=== PATIENT | male | born 1950 | race Two or more races ===

== ENCOUNTER 2022-02-05 22:52 | Emergency (ER) | payer SELFPAY ==
[2022-02-05 23:24] LABS: BASO % 1 % (0-3); EOS # 0.1 x10^3/uL (0.0-0.7); EOS % 1 % (0-3); HEMATOCRIT 37.9 % (39.0-53.0); LYMPH # 1.4 x10^3/uL (1.0-4.8); LYMPH % 19 % (24-48); MEAN CORPUSCULAR HEMOGLOBIN 30 pg (25-35); MEAN CORPUSCULAR HGB CONC 34 g/dL (31-37); MEAN CORPUSCULAR VOLUME 87 fL (79-100); MONO # 0.8 x10^3/uL (0.0-1.1); MONO % 11 % (0-9); NEUT # 5.1 x10^3/uL (1.8-7.7); NEUT % 69 % (31-73); PLATELET COUNT 222 x10^3/uL (140-400); RED BLOOD COUNT 4.37 x10^6/uL (4.30-5.70); WHITE BLOOD COUNT 7.5 x10^3/uL (4.0-11.0)
[2022-02-05 23:31] LABS: CALCIUM 8.4 mg/dL (8.5-10.1); CREATININE 1.2 mg/dL (0.7-1.3); GFR 59.7
[2022-02-05 23:37] LABS: ALBUMIN 3.7 g/dL (3.4-5.0); ALBUMIN/GLOBULIN RATIO 0.9 (1.0-1.7); TOTAL BILIRUBIN 0.3 mg/dL (0.2-1.0)
--- NOTE | 2022-02-06 00:10 | RAD ---
CT scan of the head without contrast 02/05/2022 Clinical History: Fall with head injury. Technique: Unenhanced, contiguous, 5 mm axial sections were obtained through the head. One or more of the following individualized dose reduction techniques were utilized for this study: 1. Automated exposure control. 2. Adjustment of the mA and/or kV according to patient size. 3. Use of iterative reconstruction technique. Findings: There is generalized parenchymal atrophy. Areas of decreased attenuation are seen within th e periventricular and subcortical white matter of both cerebral hemispheres consistent with areas of small vessel ischemic disease. Areas of encephalomalacia are seen involving both inferior frontal lob es along with the anterior right temporal lobe No acute parenchymal abnormality is seen. No extra-axi al fluid collection is noted. No skull fracture is seen. Impression: No acute intracranial abnormality is seen. CT scan of the cervical spine without contrast 02/05/2022 Clinical history: Fall with neck injury. Technique: Unenhanced, contiguous, 0.625 mm axial sections were obtained through the cervical spine. 3 mm reconstructed axial and 3 mm coronal and sagittal reconstructed images were obtained. One or more of the following individualized dose reduction techniques were utilized for this study: 1. Automated exposure control. 2. Adjustment of the mA and/or kV according to patient size. 3. Use of iterative reconstruction technique. Findings: Sagittal and coronal reconstructed images demonstrate straightening of the normal cervical lordosis. Degenerative changes consisting of varying degrees of disc space narrowing, vertebral endpl ate sclerosis and mild anterior and posterior vertebral body osteophyte formation are seen involving the cervical disc spaces. No fracture or subluxation cervical vertebrae seen. Degenerative degenerative changes are seen involv ing the uncovertebral and facet joints throughout the cervical disc spaces. Impression: No fracture or subluxation of the cervical vertebra is identified. Electronically signed by: Andriy Griffith MD (02/06/2022 12:07 AM) [id number]
--- NOTE | 2022-02-06 00:19 | RAD ---
PQRS Compliance Statement: One or more of the following individualized dose reduction techniques were utilized for this examinat ion: 1. Automated exposure control 2. Adjustment of the mA and/or kV according to patient size 3. Use of iterative reconstruction technique CT CHEST_ABDOMEN_ AND PELVIS WITHOUT CONTRAST Clinical Indication: Reason: fall, bruising / Spl. Instructions: / History: Comparison: None. Technique: Helical CT imaging of the chest, abdomen and pelvis is performed without IV or oral contra st. Findings: Evaluation of solid organs and bowel is limited without oral and IV contrast, decreasing sensitivity for detection of abnormal findings. No acute mediastinal hematoma is identified. 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 Coronary artery disease. Cardiac size is normal, no pericardial effus ion. No pleural effusion. The central airways are patent. There is mild scarring in the superior segment o f the right lower lobe along the major fissure. There is a small segment of nodular opacities in the anterior left upper lobe, for example image 20. Calcified granuloma in the lingula. Minimal bilateral dependent atelectasis. Given the constraints of noncontrast exam, no acute traumatic solid organ injury is identified in the upper abdomen. There is cholelithiasis. No free fluid or hemorrhage is identified in the upper abdom en. There is a small cortical calcification of the left kidney. There is a 1.5 cm round partially exo phytic lesion of the right kidney is soft tissue density, image 61. A solid renal mass cannot be excl uded. Stomach is unremarkable. There is no bowel obstruction. No colon wall thickening. There is no intrape ritoneal free air. The urinary bladder is intact. There is a left posterior bladder diverticulum measuring 3.9 cm. Prost ate is borderline enlarged. There is no pelvic free fluid. There is old fracture of the left iliac bone. There is mild arthropathy of the bilateral hips. There are probably chronic compression fractures at the anterior endplates of the T12 and L1 vertebral bodi es. There is mild loss of height anteriorly. No significant retropulsion is seen. There is mild compr ession deformity superior endplate of the T8 vertebral body. There are several old left rib fractures . IMPRESSION: 1. No acute traumatic injury in the chest, abdomen, or pelvis is identified. 2. There are nodular opacities in the anterior left upper lobe that may be infectious/inflammatory. Recommend CT chest follow-up in 3 months. 3. There is a small partially exophytic soft tissue density lesion in the right kidney. Solid mass c annot be excluded. Recommend outpatient renal ultrasound. 4. There are probably chronic compression fractures of the T8, T12, and L1 vertebral bodies. 5. Other incidental findings as above. Electronically signed by: Luis Narvaez MD (02/06/2022 12:17 AM) [facility]
--- NOTE | 2022-02-06 02:28 | RAD ---
XR HAND 3 VIEWS Clinical Indication: Reason: fall, bruising INCLUDE WRISTS / Spl. Instructions: / History: Comparison: None. Findings: No dorsal soft tissue swelling of the hands is identified. There is disc space narrowing and large ma rginal osteophytes of the left fifth PIP. There is probably old fracture deformity of the distal left ulna. There is old fracture deformity of the distal neck of the left third metacarpal. There is old fracture deformity at the base of the right fifth metacarpal. There is old fracture deformity of the distal neck of the right second metacarpal. There is no acute fracture. No radiopaque foreign bodies identified. IMPRESSION: No acute fracture. Electronically signed by: Luis Narvaez MD (02/06/2022 2:26 AM) [facility]
--- NOTE | 2022-02-06 02:31 | RAD ---
XR KNEE 3 VIEWS, BILATERAL Clinical Indication: Reason: fall, bruising / Spl. Instructions: / History: Comparison: None. Findings: Right: There is tricompartmental joint space narrowing most advanced in the lateral compartment in which the narrowing is moderate. There is meniscal chondrocalcinosis. No joint effusion is appreciated. Patell a in anatomic position. No acute fracture is seen. Left: There is meniscal chondrocalcinosis. There is mild narrowing of the medial compartment. 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 No joint effusion is appreciated. Patella is in anatomic position. No acute fracture seen. IMPRESSION: 1. No acute fracture. 2. Moderate arthropathy. 3. There is meniscal chondrocalcinosis. Electronically signed by: Luis Narvaez MD (02/06/2022 2:29 AM) [facility]
--- NOTE | 2022-02-06 02:48 | RAD ---
XR HIP (WITH OR WITHOUT PELVIS) 1 VIEW, BILATERAL HIP Clinical Indication: Reason: fall, bruising / Spl. Instructions: / History: Comparison: None. Findings: There is no acute pelvic fracture. There is moderate arthropathy of the bilateral hips. The sacroilia c joints are symmetric. There is mild endplate spurring of the lower lumbar spine. There is mild stoo l and air in the rectum. There is no acute fracture or dislocation of the right or left hip. The mine ralization is normal. IMPRESSION: No acute fracture or dislocation. Electronically signed by: Luis Narvaez MD (02/06/2022 2:45 AM) [facility]
[2022-02-06 03:17] LABS: BACTERIA,URINE 0 /HPF (0-FEW); RBC,URINE 0 /HPF (0-2); WBC,URINE 0 /HPF (0-4)
--- NOTE | 2022-02-06 03:20 | RAD ---
RIGHT SHOULDER , 3 VIEWS Clinical Indication: Reason: fall, bruising / Spl. Instructions: / History: Comparison: None. Findings: There is no acute fracture or dislocation. Pointed appearance of the distal clavicle may be postsurgi lillian or due to osteolysis. The visualized lung is clear. There is no evidence of a displaced rib fract ure. There is no soft tissue abnormality. IMPRESSION: No acute fracture or dislocation. Electronically signed by: Luis Narvaez MD (02/06/2022 3:17 AM) [facility]
--- NOTE | 2022-02-06 03:42 | PHYS DOC ---
General Adult EDM: Chief Complaint: TRAUMA ACTIVATION HPI: HPI: Patient is a 71-year-old male who presents with fall. History of seizures for which she is currently on some meds. Recently moved here this month from [facility]. Patient was walking on the patio today when he had a seizure and fell face first off of it. Possible LOC for a minute or so after the fall. This could have been due to the seizure but we are unsure at this time. Patient is not on any blood thinners. Complaining of pain throughout his body and shoulders wrists and head. No fever or chills. No other injuries. Review of Systems: Review of Systems: Constitutional: Denies fever or chills. [] Eyes: Denies change in visual acuity. [] HENT: Denies nasal congestion or sore throat. [] Respiratory: Denies cough or shortness of breath. [] Cardiovascular: Denies chest pain or edema. [] GI: Denies abdominal pain, nausea, vomiting, bloody stools or diarrhea. [] : Denies dysuria. [] Musculoskeletal: See HPI Integument: Denies rash. [] Neurologic: Denies headache, focal weakness or sensory changes. [] Endocrine: Denies polyuria or polydipsia. [] Lymphatic: Denies swollen glands. [] Psychiatric: Denies depression or anxiety. [] Heart Score: C/O Chest Pain: No Risk Factors: Risk Factors: DM, Current or recent (<one month) smoker, HTN, HLP, family history of CAD, obesity. Risk Scores: Score 0 - 3: 2.5% MACE over next 6 weeks - Discharge Home Score 4 - 6: 20.3% MACE over next 6 weeks - Admit for Clinical Observation Score 7 - 10: 72.7% MACE over next 6 weeks - Early Invasive Strategies Allergies: Allergies: Allergies Coded Allergies Type Severity Reaction Last Updated Verified No Known Drug Allergies 02/05/22 No Physical Exam: PE: Constitutional: Well developed, well nourished, no acute distress, non-toxic appearance. [] HENT: Frontal scalp hematoma Eyes: PERRLA, EOMI, conjunctiva normal, no discharge. [] Neck: Normal range of motion, no tenderness, supple, no stridor. No cervical thoracic or lumbar spine tenderness Cardiovascular:Heart rate regular rhythm, no murmur [] Lungs & Thorax: Bilateral breath sounds clear to auscultation [] Abdomen: Bowel sounds normal, soft, no tenderness, no masses, no pulsatile masses. [] Skin: Warm, dry, no erythema, no rash. [] Back: No tenderness, no CVA tenderness. [] Extremities: Bruising noted over both palms without any anatomical snuffbox tenderness bilaterally. Some bruising noted over the right shoulder, Neurologic: Alert and oriented X 3, normal motor function, normal sensory function, no focal deficits noted. [] Psychologic: Affect normal, judgement normal, mood normal. [] Current Patient Data: Labs: Laboratory Tests Test 02/05/22 23:08 02/06/22 03:00 White Blood Count 7.5 x10^3/uL (4.0-11.0) Red Blood Count 4.37 x10^6/uL (4.30-5.70) Hemoglobin 13.0 g/dL (13.0-17.5) Hematocrit 37.9 % (39.0-53.0) L Mean Corpuscular Volume 87 fL (79-100) Mean Corpuscular Hemoglobin 30 pg (25-35) Mean Corpuscular Hemoglobin Concent 34 g/dL (31-37) Red Cell Distribution Width 15.0 % (11.5-14.5) H Platelet Count 222 x10^3/uL (140-400) Neutrophils (%) (Auto) 69 % (31-73) Lymphocytes (%) (Auto) 19 % (24-48) L Monocytes (%) (Auto) 11 % (0-9) H Eosinophils (%) (Auto) 1 % (0-3) Basophils (%) (Auto) 1 % (0-3) Neutrophils # (Auto) 5.1 x10^3/uL (1.8-7.7) Lymphocytes # (Auto) 1.4 x10^3/uL (1.0-4.8) Monocytes # (Auto) 0.8 x10^3/uL (0.0-1.1) Eosinophils # (Auto) 0.1 x10^3/uL (0.0-0.7) Basophils # (Auto) 0.0 x10^3/uL (0.0-0.2) Sodium Level 127 mmol/L (136-145) L Potassium Level 5.0 mmol/L (3.5-5.1) Chloride Level 92 mmol/L (98-107) L Carbon Dioxide Level 25 mmol/L (21-32) Anion Gap 10 (6-14) Blood Urea Nitrogen 23 mg/dL (8-26) Creatinine 1.2 mg/dL (0.7-1.3) Estimated GFR (Cockcroft-Gault) 59.7 BUN/Creatinine Ratio 19 (6-20) Glucose Level 99 mg/dL (70-99) Calcium Level 8.4 mg/dL (8.5-10.1) L Total Bilirubin 0.3 mg/dL (0.2-1.0) Aspartate Amino Transferase (AST) 25 U/L (15-37) Alanine Aminotransferase (ALT) 23 U/L (16-63) Alkaline Phosphatase 94 U/L (46-116) Total Protein 8.0 g/dL (6.4-8.2) Albumin 3.7 g/dL (3.4-5.0) Albumin/Globulin Ratio 0.9 (1.0-1.7) L Lipase 226 U/L (73-393) Urine Collection Type Unknown Urine Color (Auto) Light yellow Urine Turbidity Clear Urine pH (Auto) 7.0 (<5.0-8.0) Urine Specific [place] 1.015 (1.000-1.030) Urine Protein (Auto) Negative mg/dL (Negative) Urine Glucose (Auto)(UA) Negative mg/dL (Negative) Urine Ketones (Auto) Negative mg/dL (Negative) Urine Blood (Auto) Negative (Negative) Urine Nitrite Negative (Negative) Urine Bilirubin (Auto) Negative (Negative) Urine Urobilinogen (Auto) Normal mg/dL (Normal) Urine Leukocyte Esterase (Auto) Negative (Negative) Urine RBC 0 /HPF (0-2) Urine WBC 0 /HPF (0-4) Urine Squamous Epithelial Cells Few /LPF Urine Bacteria 0 /HPF (0-FEW) Laboratory Tests 02/05/22 23:08 Laboratory Tests 02/05/22 23:08 EKG: EKG: [] Radiology/Procedures: Radiology/Procedures: [] Course & Med Decision Making: Course & Med Decision Making Pertinent Labs and Imaging studies reviewed. (See chart for details) X-rays do not show any signs of injury. Patient has some superficial bruising. His sodium is 127 however per family his seizure history is very complex chronic in nature. Patient has been completely back to baseline currently. We will follow-up his PSA PCP. He has his first ever appointment coming up in a few days. Sade Disclaimer: Sade Disclaimer: This electronic medical record was generated, in whole or in part, using a voice recognition dictation system. Departure Departure Impression: Primary Impression: Hematoma of frontal scalp Additional Impression: Skin abrasion Disposition: HOME / SELF CARE / HOMELESS Condition: STABLE Referrals: NO PCP (PCP) Patient Instructions: Seizure, Adult MONIQUE MCKEON MD February 06, 2022 03:42
== END 2022-02-06 03:50 | disposition home or self-care (01) ==
LOC: ER 22:52
DX: S00.03XA Contusion of scalp, initial encounter (principal); S40.011A Contusion of right shoulder, initial encounter; S60.222A Contusion of left hand, initial encounter; S60.221A Contusion of right hand, initial encounter; S80.02XA Contusion of left knee, initial encounter; S80.01XA Contusion of right knee, initial encounter; S70.02XA Contusion of left hip, initial encounter; S70.01XA Contusion of right hip, initial encounter; W18.39XA Other fall on same level, initial encounter; Y93.89 Activity, other specified; Y92.89 Other specified places as the place of occurrence of the external cause; Y99.8 Other external cause status
CPT/HCPCS: 36415; 70450; 71250; 72125; 73030; 73521; 74176; 80053; 81001; 83690; 85025; 73130-50; 73562-50; 99285-25